=== PATIENT | female | born 1950 | race Caucasian/White ===

== ENCOUNTER → 2018-07-01 | Outpatient (CLI) | payer MEDICARE, OTHER ==
--- NOTE | 2018-07-01 16:12 | Diagnostic Imaging Report ---
MRI of the right hindfoot without contrast. History: Closed wound on right ankle. Redness. Swelling. Infection. Pain worse with walking. Osteomyelitis.. Technique: Multiplanar multisequence MRI of the hindfoot without contrast Comparison: None. Findings: Achilles tendon and plantar fascia: The Achilles tendon and plantar fascia are normal. Cartilage and bone: Negative for osteochondral lesion of the tibiotalar and subtalar joints. Negative for fracture, osteonecrosis, or dislocation. Medial ankle: There is chronic appearing degeneration and scarring of the deltoid ligament complex with chronic appearing deformity of the medial malleolus. There is an associated chronic appearing full-thickness tear involving the distal posterior tibial tendon with proximal retraction. This is best seen on series 3 image 1 through 5. There is a small bone spur at the distal posterior medial tibia. There is a mild amount of adjacent soft tissue edema. Lateral ankle: There is scarring and attenuation of the anterior talofibular and calcaneofibular ligament. The posterior talofibular ligaments are intact. The syndesmotic ligaments are intact. There is a split peroneus brevis with adjacent soft tissue edema best seen on series 3 image 9 and 10. The peroneus longus tendon is intact. There is no subluxation. The retinacular tissues are intact. Anterior ankle: The anterior extensor tendons are normal. Other findings: There is a tibiotalar joint effusion and synovitis. 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 Split peroneus brevis tendon with adjacent soft tissue edema and scarring/attenuation of the anterior talofibular and calcaneofibular ligaments. Signed by: Dr. Mundo Zamora M.D. on 07/01/2018 4:09 PM
== END ==
LOC: MRI 13:17
PROVIDERS: ATTEND Podiatrist Foot & Ankle Surgery
DX: M86.171 Other acute osteomyelitis, right ankle and foot (principal); M76.821 Posterior tibial tendinitis, right leg

== ENCOUNTER → 2021-12-06 | Outpatient (CLI) | payer MEDICARE, OTHER | LOC: RAD 11:25 | PROVIDERS: ATTEND Surgery | DX: S62.601B Fracture of unspecified phalanx of left index finger, initial encounter for open fracture (principal) ==